=== PATIENT | female | born 1990 | race African-American/Black ===

== ENCOUNTER 2018-06-09 22:07 | Emergency (ER) | payer MEDICAID ==
[~2018-06-09] VITALS: Ht 160 cm; Wt 66.2 kg
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
--- NOTE | 2018-06-09 22:37 | NUR ---
Dr. Wharton at bedside for MSE.
--- NOTE | 2018-06-09 22:49 | NUR ---
Patient discharged to home in stable conditon. Written and verbal after care instructions given. Patient verbalizes understanding of instructions. Pt ambulated out of ER with steady gait, no acute signs of distress, VSS, all belongings taken.
[2018-06-09 22:51] VITALS: BP 113/60
== END 2018-06-09 22:51 | disposition home or self-care (01) ==
LOC: ER 22:10
DX: S06.9X0A Unspecified intracranial injury without loss of consciousness, initial encounter (principal); S13.4XXA Sprain of ligaments of cervical spine, initial encounter; Z88.6 Allergy status to analgesic agent; V43.52XA Car driver injured in collision with other type car in traffic accident, initial encounter; Y93.89 Activity, other specified; Y92.410 Unspecified street and highway as the place of occurrence of the external cause; Y99.8 Other external cause status
CPT/HCPCS: A4663